=== PATIENT | female | born 1980 | race Caucasian/White ===

== ENCOUNTER 2017-10-25 11:31 | Emergency (ER) | payer MEDICAID ==
[~2017-10-25] VITALS: Ht 162.6 cm; Wt 76.7 kg
[2017-10-25 11:39] VITALS: BP 125/81
[2017-10-25] MEDS ORDERED: KETOROLAC 30 MG/1 ML IM ONE (12:00)
[2017-10-25] MEDS ORDERED: KETOROLAC 30 MG/1 ML ONE (12:23)
== END 2017-10-25 12:53 | disposition home or self-care (01) ==
LOC: ED 12:09
DX: S83.012A Lateral subluxation of left patella, initial encounter (principal); M25.462 Effusion, left knee; F17.200 Nicotine dependence, unspecified, uncomplicated; X58.XXXA Exposure to other specified factors, initial encounter; Y93.89 Activity, other specified; Y99.8 Other external cause status; Y92.009 Unspecified place in unspecified non-institutional (private) residence as the place of occurrence of the external cause
CPT/HCPCS: 29505; 73564; 96372; 99284; J1885

== ENCOUNTER 2019-05-21 12:05 | Emergency (ER) | payer SELFPAY ==
[~2019-05-21] VITALS: Ht 160 cm; Wt 78.0 kg
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
[2019-05-21] MEDS ORDERED: HYDROcodone/APAP 5/325 TABLET ONE (12:59)
[2019-05-21] MEDS ORDERED: HYDROcodone/APAP 5/325 TABLET PO ONE (13:00)
[2019-05-21] MEDS ORDERED: DIPH,PERTUSS(ACELL),TET VAC/PF 0.5 ML IM-VACC ONE ×2 (13:13→14:00)
[2019-05-21 14:50] VITALS: BP 137/89
--- NOTE | 2019-05-21 14:51 | NUR ---
THIS FLOAT RN AT BESIDE TO RECHECK PT. PT'S VS IMPROVED. PT'S FACED/HEAD CLEANED USING WARM WATER/SOAP. PT TOLERATED WELL.
[2019-05-21] MEDS ORDERED: LIDOCAINE-MPF 1%, 5ML ONE (15:21)
[2019-05-21] MEDS ORDERED: LIDOCAINE-MPF 1%, 5ML INFIL ONE (15:30)
== END 2019-05-21 16:58 | disposition left against medical advice (07) ==
LOC: ED 16:52
DX: S62.320A Displaced fracture of shaft of second metacarpal bone, right hand, initial encounter for closed fracture (principal); S62.322A Displaced fracture of shaft of third metacarpal bone, right hand, initial encounter for closed fracture; S01.81XA Laceration without foreign body of other part of head, initial encounter; Y08.89XA Assault by other specified means, initial encounter; Y93.89 Activity, other specified; Y92.488 Other paved roadways as the place of occurrence of the external cause; Y99.8 Other external cause status
CPT/HCPCS: 12052; 70450; 70486; 90471; 90715; 99284